=== PATIENT | female | born 1990 | race Caucasian/White ===

== ENCOUNTER 2017-04-29 07:56 | Inpatient (IN) | payer BC ==
[2017-04-29] MEDS ORDERED: Zofran 4 MG/2 ML VIAL IV PRN (09:40)
[2017-04-29] MEDS ORDERED: XYLOCAINE 1% HCL 20 ML MDV IJ PRN (09:40)
[2017-04-29] MEDS ORDERED: Phenergan 25 MG INJ IV PRN (09:40)
[2017-04-29] MEDS ORDERED: PITOCIN 30 UNITS/ LR 500 ML 500 ML IV SCH (10:00)
[2017-04-29 10:06] LABS: Granulocyte Absolute (ANC) 8.89 (1.4-6.9); Hematocrit 35.5 % (35-47); Mean Cell Volume 90.3 fl (78-100); Mean Corpuscular Hemoglobin 30.5 pg (26-32); Mean Corpuscular Hgb Concent. 33.8 g/dl (32-36); Mean Platelet Volume 11.6 fl (6-9.5); Platelet Count 262 K/mm3 (150-450); Red Blood Count 3.93 M/mm3 (4.1-5.4); Red Cell Distribution Width 13.1 % (11.5-14.0); White Blood Count 11.9 K/mm3 (4.0-10.5)
[2017-04-29 10:09] LABS: Amphetamine,Urine NEG. (NEGATIVE); Barbiturate,Urine NEG. (NEGATIVE); Benzodiazepine,Urine NEG. (NEGATIVE); Cocaine,Urine NEG. (NEGATIVE); Methadone,Urine NEG. (NEGATIVE); Opiate,Urine NEG. (NEGATIVE); PCP,Urine NEG. (NEGATIVE); THC,Urine NEG. (NEGATIVE)
[2017-04-29 13:37] LABS: Lymphocytes 15 % (24-44); Monocyte 5 % (0.0-12.0); Neutrophils 80 % (36.0-66.0); Platelet Estimate NORMAL (NORMAL); Total Cells Counted 100; Toxic Granulation 1+
[2017-04-29] MEDS: Lactated Ringers 1,000 ML IV SCH (17:41)
[2017-04-29] MEDS ORDERED: Anucort-HC SUPPOSITORY PR PRN (18:45)
[2017-04-29] MEDS ORDERED: Dermoplast Spray TP PRN (18:45)
[2017-04-29] MEDS ORDERED: LANSINOH 40 GM TOP PRN (18:45)
[2017-04-29] MEDS ORDERED: CORTISONE 1% CREAM TP PRN (18:45)
[2017-04-29] MEDS ORDERED: NORCO 5/325 MG PO PRN (18:45)
[2017-04-29] MEDS ORDERED: Dulcolax 10 MG SUPP PR PRN (18:45)
[2017-04-29] MEDS ORDERED: Mylicon 80MG PO PRN (18:45)
[2017-04-29] MEDS ORDERED: TUCKS TP PRN (18:45)
[2017-04-29] MEDS ORDERED: Ambien 10 MG PO PRN (18:45)
[2017-04-29] MEDS: MOTRIN 400 MG PO PRN (18:53)
[2017-04-29] MEDS: Colace 100 MG PO SCH (21:30)
[2017-04-29] MEDS: TYLENOL EXTRA STRENGTH 500 MG PO PRN (21:30)
[2017-04-30] MEDS: MOTRIN 400 MG PO PRN ×3 (00:33→16:42)
[2017-04-30] MEDS: TYLENOL EXTRA STRENGTH 500 MG PO PRN ×3 (04:04→21:30)
[2017-04-30 05:49] LABS: Granulocyte Absolute (ANC) 10.94 (1.4-6.9); Hematocrit 32.8 % (35-47); Hemoglobin 10.8 gm/dl (12.0-16.0); Mean Cell Volume 91.1 fl (78-100); Mean Corpuscular Hgb Concent. 32.9 g/dl (32-36); Mean Platelet Volume 11.4 fl (6-9.5); Platelet Count 258 K/mm3 (150-450); Red Cell Distribution Width 13.3 % (11.5-14.0); White Blood Count 14.7 K/mm3 (4.0-10.5)
[2017-04-30 07:21] LABS: BAND 2 % (0.0-2.0); Lymphocytes 34 % (24-44); Monocyte 4 % (0.0-12.0); Neutrophils 60 % (36.0-66.0); Platelet Estimate NORMAL (NORMAL); Total Cells Counted 100
[2017-04-30 07:22] LABS: ANISOCYTOSIS 1+; Polychromasia RARE
[2017-04-30] MEDS: FERREX 150 PO SCH (09:22)
[2017-04-30] MEDS: Colace 100 MG PO SCH ×2 (09:22→21:31)
[2017-05-01] MEDS: MOTRIN 400 MG PO PRN (02:21)
--- NOTE | 2017-05-01 08:09 | PCM.DS ---
Discharge Summary Date of Admission: 04/29/17 07:56 Admitting Physician: PORFIRIO ROTHMAN Consults: Consults on Case 04/29/17 18:45 Notify Physician ROUTINE Primary Care Provider: PORFIRIO ROTHMAN Allergies Allergies No Known Drug Allergies Allergy (Verified 11/11/15 15:19) Hospital Summary - Hospital Course Hospital Course: Pt admitted in active labor at 36w 4d, . She had short cervix this and had been on progesterone vaginally. AROM by me. Pt had short second stage. Has hx episiotomy x2 and had an episiotomy this delivery as well. Delivered vigorous 5lb 9oz female, for details see delivery note. Pt's bleeding has decreased throughout her stay. Still c/o some perineal pain but otherwise no complaints. . - Vitals & Intake/Output Vital Signs: Vital Signs Temperature 97.5 F 05/01/17 02:00 Pulse Rate 71 05/01/17 02:00 Respiratory Rate 20 05/01/17 02:00 Blood Pressure 106/60 05/01/17 02:00 O2 Sat by Pulse Oximetry Intake & Output: Intake & Output 04/28/17 04/29/17 04/30/17 05/01/17 11:59 11:59 11:59 11:59 Intake Total 2200 600 Output Total 1050 Balance 1150 600 Weight 78.925 kg - Lab Result Diagrams: 04/30/17 05:08 Discharge Exam General Appearance: no apparent distress, alert Neurologic Exam: oriented x 3, cooperative, normal mood/affect Skin Exam: normal color, warm, dry, No rash Neck Exam: normal inspection Respiratory Exam: normal breath sounds, lungs clear, No crackles/rales, No rhonchi, No wheezing Cardiovascular Exam: regular rate/rhythm, normal heart sounds, No murmur Gastrointestinal/Abdomen Exam: soft, other (fundus firm under umbilicus) Extremity Exam: normal inspection, No pedal edema, No swelling Back Exam: No normal inspection Final Diagnosis/Problem List - Final Discharge Diagnosis/Problem (1) Spontaneous vaginal delivery Current Visit: Yes Status: Acute Assessment & Plan: Doing great. Home today. (2) History of eclampsia Current Visit: Yes Status: Acute Assessment & Plan: Her BP have been good throughout the and post . Would continue to check her BP at each f/u visit for both her and baby. (3) Anemia Current Visit: Yes Status: Acute Assessment & Plan: Mild. Iron x 1 mo. - Discharge Disposition: Home, Self-Care Condition: Stable Prescriptions: New Docusate Sodium 100 mg [Colace 100 MG] 100 mg PO DAILY #30 capsule Continue Vits W-Ca,Fe,FA(<1Mg) [] 1 tab PO DAILY Aspirin 81 mg PO DAILY Albuterol Sulfate [Proair Hfa] 8.5 gm IH UD Additional Instructions: You are at increased risk of pre-eclampsia for the next 6 weeks. Call the office or come to ER for any severe headache, visual changes/seeing spots, rapid swelling of arms/legs/face, or right upper abdominal pain. Follow up with: PORFIRIO ROTHMAN [Primary Care Provider] - 1 Week
[2017-05-01] MEDS: Lactated Ringers 1,000 ML IV SCH (10:50)
[2017-05-01] MEDS: FERREX 150 PO SCH (11:45)
[2017-05-01] MEDS: Colace 100 MG PO SCH (11:45)
[2017-05-01 18:41] VITALS: BP 114/67; PULSE 80
== END 2017-05-01 19:30 | disposition home or self-care (01) | DRG 775 ==
LOC: OBSVTOIN 07:56 → OB 07:56
PROVIDERS: ADMIT Family Medicine; ATTEND Family Medicine
PROC: 10E0XZZ Delivery of Products of Conception, External Approach (ICD-10-PCS; principal; 2017-04-29)
PROC: 0W8NXZZ Division of Female Perineum, External Approach (ICD-10-PCS; 2017-04-29)
DX: O80 Encounter for full-term uncomplicated delivery (principal); Z3A.36 36 weeks gestation of pregnancy; Z37.0 Single live birth; D64.9 Anemia, unspecified
CPT/HCPCS: 36415; 80307; 85025; G0378; J2405; J2590; A9270-GY